=== PATIENT | female | born 1950 | race Caucasian/White ===

== ENCOUNTER 2017-04-03 12:29 | Emergency (ER) | payer BC ==
[2017-04-03 13:01] LABS: BASOPHILS 0.5 %; BASOPHILS ABSOLUTE 0.05 10/3/uL (0.0-0.16); EOSINOPHILS 2.4 %; EOSINOPHILS ABSOLUTE 0.22 10/3/uL (0.0-0.53); ER CBC TAT 0 Hrs 05 Mins; HEMATOCRIT 44.6 % (36.0-48.0); HEMOGLOBIN 15.1 g/dL (12.0-16.0); IMMATURE GRANULOCYTES 0.3 %; IMMATURE GRANULOCYTES ABSOLUTE 0.03 10/3/uL (0.0-0.11); LYMPHOCYTES 27.7 %; LYMPHOCYTES ABSOLUTE 2.58 10/3/uL (0.67-4.30); MEAN CORPUS HGB CONC 33.9 g/dL (32.0-36.0); MEAN CORPUSCULAR VOLUME 88.7 fL (80-100); MEAN PLATELET VOLUME 11.1 fL (9.2-13.0); MONOCYTES 5.7 %; MONOCYTES ABSOLUTE 0.53 10/3/uL (0.21-1.20); NEUTROPHILS 63.4 %; PLATELET COUNT 272 10/3/uL (150-400); RBC DISTRIBUTION WIDTH 13.2 % (12.0-16.0); RED CELL COUNT 5.03 10/6/uL (4.0-5.6); WHITE BLOOD CELLS 9.3 10/3/uL (4.5-10.5)
[2017-04-03 13:04] LABS: MANUAL DIFF NO %
[2017-04-03 13:07] LABS: INTERNATIONAL NORMAL RATI 1.1 UNITS (-); PARTIAL THROMBO TIME 30.9 SEC (22.5-37.2); PROTIME (NOT ORD) 13.6 SEC (12.0-14.5)
[2017-04-03 13:18] LABS: BUN (BLOOD UREA NITROGEN) 15 MG/DL (6-23); CALCIUM, SERUM 8.7 MG/DL (8.5-10.4); CHEST PAIN PROFILE TAT 0 Hrs 22 Mins; CHLORIDE, SERUM 109 MMOL/L (96-112); CO2 (CARBON DIOXIDE) 26 MMOL/L (24-34); CREATININE 0.87 MG/DL (0.55-1.02); GFR AFRICAN AMERICAN 82 ML/MIN (>=60); GFR NON AFRICAN AMERICAN 70 ML/MIN (>=60); GLUCOSE, SERUM 129 MG/DL (60-99); POTASSIUM, SERUM 3.9 MMOL/L (3.5-5.3); SODIUM, SERUM 141 MMOL/L (135-148); TROPONIN I <0.02 NG/ML (<0.05)
[2017-07-18] MEDS ORDERED: PROZAC PO (11:54)
[2017-07-18] MEDS ORDERED: LOFIBRA134 MG PO (11:54)
[2017-07-18] MEDS ORDERED: PRILO PO (11:55)
[2017-07-18] MEDS ORDERED: CHOLEST OFF PO (11:57)
[2017-07-18] MEDS ORDERED: VITAMIN D31000 UNIT PO (11:57)
[2017-07-18] MEDS ORDERED: TURMERIC PO (11:58)
[2017-07-18] MEDS ORDERED: IBU800 PO (11:58)
== END 2017-04-03 16:13 | disposition home or self-care (01) ==
LOC: ER 12:29
PROVIDERS: Emergency Medicine
DX: M54.6 Pain in thoracic spine (principal); K21.9 Gastro-esophageal reflux disease without esophagitis; Z88.5 Allergy status to narcotic agent
CPT/HCPCS: 71020; 80048; 83735; 84484; 85025; 85610; 85730; 93005; 96374; 99285; J1885; J2360

== ENCOUNTER 2017-07-20 10:35 | Day surgery (SDC) | payer MEDICARE ==
[2017-07-10 14:34] LABS: HEMATOCRIT 44.8 % (36.0-48.0); HEMOGLOBIN 14.9 g/dL (12.0-16.0)
[~2017-07-20] VITALS: Ht 167.6 cm; Wt 83.5 kg
--- NOTE | ~2017-07-20 | OP ---
Record Of Operation [facility] [address] [place]. 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 PROCEDURE: 1. Left first metatarsophalangeal arthrodesis with internal fixation. 2. Left second metatarsal Jose osteotomy with internal fixation. 3. Left second metatarsophalangeal joint extensor tenotomy and capsulotomy. 4. Left second PIPJ nonunion excision with arthrodesis with bone grafting and internal fixation. ANESTHESIA: General local anesthetic. ESTIMATED BLOOD LOSS: Minimal. COMPLICATIONS: None. INJECTABLES: Approximately 30 mL of a 1:1 mixture of 1% Xylocaine plain and 0.5% Marcaine plain. MATERIALS: Include Arthrex headless compression screw, Arthrex QuickFix screw fixation, Arthrex first metatarsophalangeal arthrodesis, fusion plating system with locking/nonlocking screw fixation, 2-0 Vicryl, 4-0 Vicryl, 4-0 nylon. PROCEDURE IN DETAIL: Under mild sedation, the patient was brought to the operating room, placed on table in supine position. Following anesthesia, local anesthesia obtained about the patient's left foot. Left foot, ankle, and lower leg were scrubbed, prepped, and draped in usual aseptic manner. Attention was directed to the procedure. Procedure #1 is left first metatarsophalangeal arthrodesis with internal fixation. Attention was directed to dorsal aspect of the patient's left first metatarsophalangeal joint where an approximate 4-5 cm incision was made medial and parallel to the extensor tendon involving the contour of the deformity. The incision was deepened to subcutaneous tissue with care being taken to identify and retract all vital neurovascular structures. All bleeders were cauterized and ligated as necessary. At this time, a linear capsular incision was made medial and parallel to the extensor tendon. Capsular tissues were reflected medially and laterally exposing the first metatarsophalangeal joint. Arthritic changes were present. Record Of Operation [place] [address] [place]. [address] NAME: JESSICA WARNER : 54 STATUS : [facility] PAT#: [id number] AGE: 67 ADM/REG DATE : 07/20/17 MR#: [id number] REPORT SERV DATE: 07/27/17 DICTATED BY: ANCELMO NIELSON DATE: 07/27/17 REPORT STATUS : Draft TRANSCRIBED BY: HERB DATE: 07/27/17 Utilizing cup and cone reamers, the head of the metatarsal and base of the proximal phalanges were reamed of any remaining cartilaginous tissue with penetration of the subchondral plate. Subchondral drilling ensued. Manual reduction of the first metatarsophalangeal joint was performed as temporary fixation was placed to the dorsal plating system. An interfragmentary screw was utilized to compress the joint utilizing the oblong hole in the dorsal plate to allow for compression. This was performed with a cannulated 3-0 screw. Excellent compression noted. The remaining holes were then filled with locking/nonlocking screw fixation for permanent fixation. At this time, copious irrigation ensued. The capsular and deep fascial structures were reapproximated and coapted utilizing 2-0 Vicryl and 4-0 Vicryl. Attention was directed next procedure. The next procedure is left second metatarsophalangeal joint extensor tenotomy and capsulotomy. Attention was directed to dorsal aspect of the patient's left second metatarsophalangeal where a curvilinear incision was made overlying the dorsal aspect of the second metatarsophalangeal joint. Blunt dissection was continued down to the level of the extensor apparatus. Extensor kelly release was performed and Z-lengthening of the extensor longus and brevis tendon was performed at the level of the second metatarsophalangeal joint. Linear capsulotomy ensued. Attention directed to the next procedure. The next procedure is left second metatarsal Jose osteotomy. At this time, attention was directed to metatarsal head where a Jose osteotomy was made in the metatarsal head from dorsal distal to proximal plantar. The osteotomy was made parallel to the weightbearing surface of the foot. At this time, the osteotomy was shortened approximately 2 mm, was visualized under fluoroscopy in order to maintain the metatarsal parabola and was fixated with an Arthrex QuickFix screw. The dorsal shelf was resected and all rough edges were smoothed and resected. Copious irrigation ensued. At this time, the dorsal contracture to the second metatarsophalangeal joint was reduced, and attention directed to the nonunion/malunion to the second PIPJ. At this time, the second digit was visualized as the shortened nonunion and malunion was visualized. At this time, two 2 cm semi-elliptical incision was made overlying the left second dorsal digit. Ellipse of skin was removed in toto. Transverse tenotomy, capsulotomy was made overlying the nonunion site at the level the PIPJ. Transverse tenotomy, capsulotomy ensued exposing the nonunion, which was resected with rongeur and was also resected with a sagittal saw, in order to get fresh viable bone. At this time, a guidewire was then placed into the intermediate phalanx exiting percutaneously and was retrograded into the proximal phalanx. Fluoroscopy confirmed excellent positioning. A headless compression screw from Arthrex was then placed in a cannulated fashion overlying the guidewire percutaneously. This was then placed across the nonunion site and a suitable gap was utilized in order to maintain an appropriate length of the second toe. Bone grafting then ensued within the nonunion site from the cancellous bone resected from the arthrodesis of the first metatarsal. Excellent positioning was noted. Gentle irrigation ensued and the extensor lengthening were reapproximated using 4-0 Vicryl, and the subcutaneous tissue reapproximated and coapted utilizing 4-0 Vicryl. Skin reapproximated Record Of Operation [facility] [address] [facility] [place]. [address] NAME: JESSICA WARNER : 54 STATUS : [facility]#: [id number] AGE: 67 ADM/REG DATE : 07/20/17 MR#: [id number] REPORT SERV DATE: 07/27/17 DICTATED BY: ANCELMO NIELSON DATE: 07/27/17 REPORT STATUS : Draft TRANSCRIBED BY: HERB DATE: 07/27/17 and coapted to each incision site with 4-0 nylon in interrupted and continuous suture technique. A well-padded sterile dressing was placed about the patient's left foot and ankle. The patient procedure and anesthesia well and was transferred to recovery room. Vital signs stable. Vascular status intact to all toes. Following a period of postoperative monitoring, the patient will be discharged to home with the following written and oral postoperative instructions. POSTOPERATIVE INSTRUCTIONS: 1. Keep dressings clean, dry, and intact. 2. Strict nonweightbearing at all times. 3. Ice, elevate as. 4. Directed take medications as prescribed. 5. Follow up with Dr. Bryant in 7 to 14 days. CLIF/HERB Piyush Nielson D.P.M. / [id number] CC: Kaylyn Villagomez UDIT
[~2017-07-20 10:35] MED LIST: CHOLEST OFF PO; IBU800 PO; LOFIBRA134 MG PO; PRILO PO; PROZAC PO; TURMERIC PO; VITAMIN D31000 UNIT PO
== END 2017-07-20 17:28 | disposition home or self-care (01) ==
LOC: SDC 10:35
PROVIDERS: Podiatrist Foot & Ankle Surgery
PROC: 0QBR0ZZ Excision of Left Toe Phalanx, Open Approach (ICD-10-PCS; 2017-07-20)
PROC: 0SGQ04Z Fusion of Left Toe Phalangeal Joint with Internal Fixation Device, Open Approach (ICD-10-PCS; 2017-07-20)
PROC: 0SGQ07Z Fusion of Left Toe Phalangeal Joint with Autologous Tissue Substitute, Open Approach (ICD-10-PCS; 2017-07-20)
PROC: 0SGN04Z Fusion of Left Metatarsal-Phalangeal Joint with Internal Fixation Device, Open Approach (ICD-10-PCS; principal; 2017-07-20 11:45)
PROC: 0Q8P0ZZ Division of Left Metatarsal, Open Approach (ICD-10-PCS; 2017-07-20 11:45)
DX: M20.12 Hallux valgus (acquired), left foot (principal); M19.072 Primary osteoarthritis, left ankle and foot; M24.575 Contracture, left foot; M96.0 Pseudarthrosis after fusion or arthrodesis; E78.00 Pure hypercholesterolemia, unspecified; K21.9 Gastro-esophageal reflux disease without esophagitis; Z88.5 Allergy status to narcotic agent; Z98.51 Tubal ligation status; Z90.49 Acquired absence of other specified parts of digestive tract; Z98.890 Other specified postprocedural states; Z79.899 Other long term (current) drug therapy
CPT/HCPCS: 76000; 85014; 85018; 93005; C1713; C1769; J0690; J2250; J2370; J2405; J3010